=== PATIENT | female | born 1980 | race Caucasian/White ===

== ENCOUNTER 2016-08-30 14:42 | Emergency (ER) | payer SELFPAY ==
[2016-08-30 15:37] VITALS: BP 148/88
--- NOTE | 2016-08-30 15:54 | UC ---
Throat Pain/Nasal Olman HPI - HPI Summary HPI Summary: Patient has had a week of sinus congestion and now has developed a sore throat. - History of Current Complaint Chief Complaint: UCRespiratory Stated Complaint: SORE THROAT Time Seen by Provider: 08/30/16 15:40 Hx Obtained From: Patient Hx Last Menstrual Period: 08/07/16 ?: No Onset/Duration: Sudden Onset, Lasting Days Severity: Moderate Pain Intensity: 6 Pain Scale Used: 0-10 Numeric Cough: None Associated Signs & Symptoms: Positive: Dysphagia, Sinus Discomfort, Nasal Discharge - Epiglottits Risk Factors Epiglottis Risk Factors: Negative - Allergies/Home Medications Allergies/Adverse Reactions: Allergies Allergy/AdvReac Type Severity Reaction Status Date / Time No Known Allergies Allergy Verified 10/03/14 23:42 Home Medications: Home Medications buPROPion TAB* [Wellbutrin TAB*] 100 mg PO BID 08/30/16 [History Confirmed 08/30] PMH/Surg Hx/FS Hx/Imm Hx Previously Healthy: Yes Endocrine History Of: Denies: Diabetes, Thyroid Disease Cardiovascular History Of: Denies: Cardiac Disorders, Hypertension Respiratory History Of: Denies: COPD, Asthma GI/ History Of: Denies: Ulcer - Surgical History Surgical History: None - Family History Known Family History: Negative: Hypertension - Social History Alcohol Use: Weekly Substance Use Type: Marijuana Substance Use Comment - Amount & Last Used: daily Smoking Status (MU): Current Some Day Smoker Type: Cigarettes Review of Systems Constitutional: Negative Skin: Negative Eyes: Negative ENT: Sore Throat, Ear Ache, Nasal Discharge Respiratory: Negative Cardiovascular: Negative Gastrointestinal: Negative Genitourinary: Negative Motor: Negative Neurovascular: Negative Musculoskeletal: Negative Neurological: Headache Psychological: Anxious All Other Systems Reviewed And Are Negative: Yes Physical Exam Triage Information Reviewed: Yes Appearance: Well-Appearing, Well-Nourished, Pain Distress Vital Signs: Initial Vital Signs Temp 98.3 F 08/30/16 15:34 Pulse 58 08/30/16 15:34 Resp 18 08/30/16 15:34 BP 148/88 08/30/16 15:34 Pulse Ox 99 08/30/16 15:34 Vital Signs Reviewed: Yes Eye Exam: Normal Eyes: Positive: Conjunctiva Clear ENT: Positive: Pharyngeal erythema, Nasal congestion - bilateral maxillary congestion and pressure, TM bulging Dental Exam: Normal Neck exam: Normal Neck: Positive: Supple, Nontender, No Lymphadenopathy Respiratory Exam: Normal Respiratory: Positive: Chest non-tender, Lungs clear, Normal breath sounds Cardiovascular Exam: Normal Cardiovascular: Positive: RRR, No Murmur, Pulses Normal Abdominal Exam: Normal Abdomen Description: Positive: Nontender, No Organomegaly, Soft Bowel Sounds: Positive: Present Musculoskeletal Exam: Normal Musculoskeletal: Positive: Strength Intact, ROM Intact, No Edema Neurological Exam: Normal Neurological: Positive: Alert, Muscle Tone Normal Psychological Exam: Normal Skin Exam: Normal Throat Pain/Nasal Course/Dx - Course Course Of Treatment: hx obtained exam performed, rapid strep test performed, educated on manual sinus drainage, medication prescribed. - Differential Dx/Diagnosis Differential Diagnosis/HQI/PQRI: Influenza, Laryngitis, Otitis Media, Pharyngitis, Sinusitis, Tonsillitis Provider Diagnoses: rhinosinusitis. pharyngitis Discharge - Discharge Plan Condition: Stable Disposition: HOME Prescriptions: predniSONE TAB* [Deltasone TAB*] 40 mg PO DAILY #10 tab Patient Education Materials: Rhinosinusitis (ED) Referrals: No Primary Care Phys,NOPCP [Primary Care Provider] - Additional Instructions: take the prednisone as prescribed. Increase your fluid intake and continue with the manual drainage we discussed. follow up with any worsening symptoms
== END 2016-08-30 16:38 | disposition home or self-care (01) ==
LOC: UCEAST 14:42
DX: J32.9 Chronic sinusitis, unspecified (principal); J02.9 Acute pharyngitis, unspecified; F12.90 Cannabis use, unspecified, uncomplicated; Z72.0 Tobacco use
CPT/HCPCS: 87651; 99212; G0463

== ENCOUNTER 2018-04-27 07:13 | Emergency (ER) | payer SELFPAY ==
[2018-04-27] MEDS ORDERED: Ondansetron INJ* 2 MG/ML VIAL IV ONE (08:07)
[2018-04-27] MEDS ORDERED: Ketorolac INJ* 30 MG/ML 1 ML VIAL IV ONE (08:07)
[2018-04-27] MEDS ORDERED: NS 0.9% 1000 ML* 1,000 ML IV ONE (08:07)
--- OUTSIDE RECORDS SUMMARY | 2018-04-27 08:07 | XMS REPORT | Continuity of Care Document ---
:1980 External Reference #:[id number] Author Name Luis Mireles MD Address [address] [place] [address] Care Team Providers Name Role Phone Imtiaz Hartmann D.D.S. Care Team Information Camp Nurse Unavailable Payers Description No Information Available Advance Directives Description No Information Available Problems Description No Information Family History Description No Information Available Social History Type Date Description Comments Sex Unknown Occupation Unknown Tobacco Use Start: Unknown Current Cigarette Smoker 1-5 x 20 years Cigarettes Daily Tobacco Use Start: Unknown Never Smoked Cigars Tobacco Use Start: Unknown Never Smoked A Pipe Smokeless Tobacco Never Used Smokeless Tobacco ETOH Use Currently occasionally consumes alcohol Tobacco Use Start: Unknown Patient is a current smoker, smokes every day Smoking Status Reviewed: 04/19/18 Patient is a current smoker, smokes every day Allergies, Adverse Reactions, Alerts Description No Known Drug Allergies Medications Medication Date Status Form Strength Qnty SIG Indications Ordering Provider Womens Multi 00/00/ Active Capsules take as Unknown 0000 directed Hair Skin And 00/ Active Tablets as directed Unknown Nails Formula 0000 Super B / Active Tablets as directed Unknown Complex/Vitam 0000 in C Iron / Active Tablets 28mg 1 by mouth as Unknown 0000 needed Zinc / Active Capsules 30mg Prn Unknown 0000 Vitamin C 00/ Active Capsules 500-400mg- as directed Unknown 0000 Unit Tramadol HCL / Active Tablets 50mg when Unknown 0000 menstrating Zyrtec / Active Capsules 10mg 1 by mouth Unknown Allergy 0000 every night at bedtime Immunizations Description No Information Available Vital Signs Date Vital Result Comment 04/19/2018 2:46pm Weight 128.00 lb Weight 58.061 kg Height 62.5 inches 5'2.50" Height in cm's 158.8 cm BMI (Body Mass Index) 23.0 kg/m2 Results Description No Information Available Procedures Description No Information Available Encounters Type Date Location Provider Dx Diagnosis Office Visit 04/19/2018 Espinoza,Marlon Wheeler J30.9 Allergic rhinitis, 2:15p 07/24/07 MD Aline unspecified 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
[2018-04-27 08:28] LABS: ABS Basophils 0.1 10^3/ul (0-0.2); ABS Eosinophils 0.2 10^3/ul (0-0.6); ABS Lymphocytes 1.4 10^3/ul (1.0-4.8); ABS Monocytes 0.5 10^3/ul (0-0.8); ABS Nucleated RBC 0 10^3/ul; Eosinophil % 4.2 % (0-6); Hematocrit 43 % (35-47); Hemoglobin 14.6 g/dl (12.0-16.0); Lymphocyte % 27.1 % (25-47); Mean Corpuscular HGB Conc 34 g/dl (31-36); Mean Corpuscular Hemoglobin 32 pg (27-31); Mean Corpuscular Volume 95 fL (80-97); Mean Platelet Volume 7.7 um3 (7.4-10.4); Nucleated Red Blood Cells % 0.2; Platelet Count 242 10^3/ul (150-450); Red Blood Count 4.53 10^6/ul (4.00-5.40); Red Cell Distribution Width 13 % (10.5-15); White Blood Count 5.1 10^3/ul (3.5-10.8)
--- NOTE | 2018-04-27 08:35 | ED ---
Abdominal Pain/Female - HPI Summary HPI Summary: This pt is a 38 y/o female presenting to [facility] c/o sudden onset of mid abdominal cramping this morning. Pt reports that she was getting ready for work at around 06:30 and took a sip of seltzer water when she suddenly developed abd cramping. Pt has drank this seltzer water for 1 year now. She states that it caused her to freeze and drop to her knees with diaphoresis all over. Pt denies syncope or LOC. Currently pt rates her pain 7 out of 10 in severity. She describes "it feels like something is wrapped around my rib cage and is tightening" and is difficult to breathe secondary to pain. Denies fever, chills , nausea, vomiting, chest pain, urinary symptoms. LMP: . Denies any PMHx. NKDA. - History of Current Complaint Chief Complaint: EDAbdPain Stated Complaint: ABD PAIN Time Seen by Provider: 04/27/18 07:47 Hx Obtained From: Patient Hx Last Menstrual Period: 08/07/16 Onset/Duration: Sudden Onset, Still Present Timing: Constant Severity Currently: Moderate Pain Intensity: 7 Pain Scale Used: 0-10 Numeric Location: Other - mid abdomen Radiates: No Character: Cramping Aggravating Factor(s): Nothing Alleviating Factor(s): Nothing Associated Signs and Symptoms: Negative: Fever, Chest Pain, Urinary Symptoms, Nausea, Vomiting Allergies/Adverse Reactions: Allergies Allergy/AdvReac Type Severity Reaction Status Date / Time polyethylene glycol 3350 Allergy Rash Verified 04/27/18 07:41 [From Miralax] Home Medications: Home Medications Tramadol HCl 50 mg PO Q6HR PRN 04/27/18 [History Confirmed 04/27/18] PMH/Surg Hx/FS Hx/Imm Hx Endocrine/Hematology History: Denies: Hx Diabetes, Hx Thyroid Disease Cardiovascular History: Denies: Hx Hypertension Respiratory History: Denies: Hx Asthma, Hx Chronic Obstructive Pulmonary Disease (COPD) GI History: Denies: Hx Ulcer - Surgical History Surgery Procedure, Year, and Place: none - Immunization History Immunizations Up to Date: Yes Infectious Disease History: No Infectious Disease History: Denies: Hx Hepatitis, Hx Human Immunodeficiency Virus (HIV), Traveled Outside the [place] in Last 30 Days - Family History Known Family History: Positive: Cardiac Disease - grandmother, Diabetes Negative: Hypertension - Social History Alcohol Use: Weekly Alcohol Amount: 1-2 x per week Substance Use Type: Reports: Marijuana Substance Use Comment - Amount & Last Used: daily Smoking Status (MU): Light Every Day Tobacco Smoker Type: Cigarettes Review of Systems Positive: Skin Diaphoresis. Negative: Fever, Chills Eyes: Negative Negative: Chest Pain Positive: Abdominal Pain. Negative: Vomiting, Nausea Positive: no symptoms reported, see HPI Negative: Syncope All Other Systems Reviewed And Are Negative: Yes Physical Exam - Summary Physical Exam Summary: VITAL SIGNS: Reviewed. GENERAL: Patient is a well-developed and nourished female who is lying comfortable in the stretcher. Patient is not in any acute respiratory distress. HEAD AND FACE: Normocephalic and atraumatic. EYES: PERRLA, EOMI x 2, No injected conjunctiva. EARS: Hearing grossly intact. Ear canals and tympanic membranes are WNL. MOUTH: Oropharynx within normal limits. NECK: Supple, trachea is midline, no adenopathy, no JVD. CHEST: Symmetric, no tenderness at palpation LUNGS: Clear to auscultation bilaterally. No wheezing or crackles. CVS: RRR, S1 and S2 present, no murmurs or gallops appreciated. ABDOMEN: Soft, tenderness in the upper abdomen. No signs of distention. Positive bowel sounds. No rebound no guarding, and no masses palpated. No abdominal bruit or pulsations. EXTREMITIES: FROM in all major joints, no edema, no cyanosis or clubbing. NEURO: Alert and oriented x 3. No acute neurological deficits. Speech is normal. SKIN: Dry and warm Triage Information Reviewed: Yes Vital Signs On Initial Exam: Initial Vitals Temp Pulse Resp BP Pulse Ox 97.4 F 58 17 143/76 98 04/27/18 07:37 04/27/18 07:37 04/27/18 07:37 04/27/18 07:37 04/27/18 07:37 Vital Signs Reviewed: Yes Diagnostics - Vital Signs Vital Signs Temp Pulse Resp BP Pulse Ox 04/27/18 07:37 97.4 F 58 17 143/76 98 - Laboratory Lab Results: Lab Results 04/27/18 Range/Units 08:11 WBC 5.1 (3.5-10.8) 10^3/ul RBC 4.53 (4.00-5.40) 10^6/ul Hgb 14.6 (12.0-16.0) g/dl Hct 43 (35-47) % MCV 95 (80-97) fL MCH 32 H (27-31) pg MCHC 34 (31-36) g/dl RDW 13 (10.5-15) % Plt Count 242 (150-450) 10^3/ul MPV 7.7 (7.4-10.4) um3 Neut % (Auto) 58.1 (38-83) % Lymph % (Auto) 27.1 (25-47) % [place] % (Auto) 9.3 H (0-7) % Eos % (Auto) 4.2 (0-6) % Baso % (Auto) 1.3 (0-2) % Absolute Neuts (auto) 3.0 (1.5-7.7) 10^3/ul Absolute Lymphs (auto) 1.4 (1.0-4.8) 10^3/ul Absolute Monos (auto) 0.5 (0-0.8) 10^3/ul Absolute Eos (auto) 0.2 (0-0.6) 10^3/ul Absolute Basos (auto) 0.1 (0-0.2) 10^3/ul Absolute Nucleated RBC 0 10^3/ul Nucleated RBC % 0.2 Result Diagrams: 04/27/18 08:11 04/27/18 08:11 Lab Statement: Any lab studies that have been ordered have been reviewed, and results considered in the medical decision making process. - Radiology Abdomen XR Xray Interpretation: No Acute Changes - IMPRESSION: Nonobstructive bowel gas pattern. Dr. Sommer has reviewed this report. Radiology Interpretation Completed By: Radiologist - EKG 08:25 Cardiac Rate: Bradycardia - at 47 bpm EKG Rhythm: Sinus Bradycardia EKG Interpretation: No ST elevations. Abdominal Pain Fem Course/Dx - Course Course Of Treatment: This pt is a 38 y/o female presenting to [facility] c/o sudden onset of mid abdominal cramping this morning. Pt reports that she was getting ready for work at around 06:30 and took a sip of seltzer water when she suddenly developed abd cramping. Pt has drank this seltzer water for 1 year now. She states that it caused her to freeze and drop to her knees with diaphoresis all over. Pt denies syncope or LOC. Currently pt rates her pain 7 out of 10 in severity. She describes "it feels like something is wrapped around my rib cage and is tightening" and is difficult to breathe secondary to pain. Denies fever, chills, nausea, vomiting, chest pain, urinary symptoms. LMP: Mar. 15. Denies any PMHx. NKDA. Blood work without any significant abnormality, beta hCG is negative, troponin is 0.00. Abdominal x-ray impression : Non-obstructive bowel gas pattern. In the ED course the patient was given IV fluids, Zofran and morphine for the pain. At this point the patient is completely asymptomatic. I observed the patient for couple hours and the symptoms did not return. Multiple abdominal exams during the ER stay the abdomen is soft, nontender with positive bowel sounds. Since the patient is completely asymptomatic, all the blood tests and x-ray are within normal limits I believe that the patient can be safely discharged home with follow-up from primary care physician. I also discussed the benefits and risk of an abdominal/ pelvis CT and at this time we chose not to get the CT of the abdomen and pelvis until the patients pain returns or worsens. The patient understands and agrees. At this point the patient is hemodynamically stable, alert and oriented 3. Patient will be discharged home with follow up from her primary care physician. - Diagnoses Differential Diagnosis: Positive: Constipation, Gall Bladder Disease, Urinary Tract Infection Provider Diagnoses: Upper abdominal pain Discharge - Sign-Out/Discharge Documenting (check all that apply): Patient Departure - Discharge home - Discharge Plan Condition: Stable Disposition: HOME Patient Education Materials: Abdominal Pain (ED) Referrals: [facility] [Outside] Additional Instructions: FOLLOW UP WITH YOUR PRIMARY CARE PROVIDER WITHIN ONE WEEK FOR HIGH BLOOD PRESSURE NOTED TODAY. RETURN TO THE ED FOR ANY NEW OR WORSENING SYMPTOMS. - Attestation Statements Document Initiated by Scribe: Yes Documenting Scribe: Sneha Lay Provider For Whom Parth is Documenting (Include Credential): Juan Antonio Sommer MD Scribe Attestation: Sneha Hoffmann, scribed for Juan Antonio Sommer MD on 04/27/18 at 1326.
[2018-04-27 08:46] LABS: EGFR Non-African American 86.9 (>60)
--- NOTE | 2018-04-27 09:23 | RAD ---
HISTORY: Abdominal pain COMPARISONS: None VIEWS: Frontal supine and upright views of the abdomen. FINDINGS: BOWEL: There is a nonobstructive bowel gas pattern. There is large amount of stool within the ascending and proximal transverse colon. The distal transverse and descending and rectosigmoid colon are relatively stable for a period CALCULI: There are no abnormal calculi. BONES AND SOFT TISSUES: There are no osseous abnormalities. OTHER FINDINGS: The lung bases are clear. There is no subphrenic gas. An IUD is noted. IMPRESSION: NONOBSTRUCTIVE BOWEL GAS PATTERN.
[2018-04-27 09:43] LABS: Urine Appearance Clear; Urine Blood Negative (Negative); Urine Color Yellow; Urine Ketones Negative (Negative); Urine Protein Negative (Negative); Urine Specific Gravity 1.013 (1.010-1.030); Urine Urobilinogen Negative (Negative)
[2018-04-27 10:23] VITALS: BP 118/66
== END 2018-04-27 10:21 | disposition home or self-care (01) ==
LOC: ED 07:13
DX: R10.10 Upper abdominal pain, unspecified (principal); F17.210 Nicotine dependence, cigarettes, uncomplicated
CPT/HCPCS: 36415; 74019; 80053; 81003; 82150; 83605; 83690; 84484; 84702; 85025; 86140; 93005; 96361; 96374; 96375; 99282; J1885; J2405

== ENCOUNTER 2019-07-27 12:49 | Emergency (ER) | payer BC ==
--- NOTE | 2019-07-27 13:07 | ED ---
HPI Chest Pain - HPI Summary HPI Summary: Pt. is a 39 y.o female who presents to the ER for left sided chest pain that started yesterday. Notes pain is sharp in nature and worse with movement and inspiration. Past hx of cigarette use. Denies family hx of CAD, clotting d/o. Pt. denies any injury but does not "rough sex" last night. Pt. otherwise denies recent illness, fever, abd. pain, cough. Sxs are moderate in severity. - History of Current Complaint Chief Complaint: EDChestPainROMI Time Seen by Provider: 07/27/19 13:05 Hx Obtained From: Patient Hx Last Menstrual Period: 08/07/16 Pain Intensity: 8 - Allergy/Home Medications Allergies/Adverse Reactions: Allergies Allergy/AdvReac Type Severity Reaction Status Date / Time polyethylene glycol 3350 Allergy Rash Verified 07/27/19 12:52 [From Miralax] PMH/Surg Hx/FS Hx/Imm Hx Previously Healthy: Yes Endocrine/Hematology History: Denies: Hx Diabetes, Hx Thyroid Disease Cardiovascular History: Denies: Hx Hypertension Respiratory History: Denies: Hx Asthma, Hx Chronic Obstructive Pulmonary Disease (COPD) GI History: Denies: Hx Ulcer - Surgical History Surgery Procedure, Year, and Place: none Infectious Disease History: No Infectious Disease History: Denies: Hx Hepatitis, Hx Human Immunodeficiency Virus (HIV), Traveled Outside the [place] in Last 30 Days - Family History Known Family History: Positive: Cardiac Disease - grandmother, Diabetes Negative: Hypertension - Social History Occupation: Employed Full-time Lives: With Family Alcohol Use: Weekly Alcohol Amount: 1-2 x per week Substance Use Type: Reports: Marijuana Substance Use Comment - Amount & Last Used: daily Smoking Status (MU): Current Some Day Smoker Type: Cigarettes Review of Systems Constitutional: Negative ENT: Negative Positive: Chest Pain Respiratory: Negative Negative: Shortness Of Breath, Cough Genitourinary: Negative Positive: Other - Left chest wall pain Skin: Negative Neurological: Negative All Other Systems Reviewed And Are Negative: Yes Physical Exam Triage Information Reviewed: Yes Vital Signs On Initial Exam: Initial Vitals Temp Pulse Resp BP Pulse Ox 97.1 F 90 19 130/80 100 07/27/19 12:49 07/27/19 12:49 07/27/19 12:49 07/27/19 12:49 07/27/19 12:49 Vital Signs Reviewed: Yes Appearance: Positive: Well-Appearing - Pt. sitting up in bed in NAD. SO present. Skin: Positive: Warm, Dry Head/Face: Positive: Normal Head/Face Inspection Eyes: Positive: Normal, EOMI, LUCILLE Neck: Positive: Supple Respiratory/Lung Sounds: Positive: Clear to Auscultation, Breath Sounds Present. Negative: Rales, Rhonchi, Wheezes Cardiovascular: Positive: Normal, RRR Abdomen Description: Positive: Nontender, Soft Musculoskeletal: Positive: Normal, Strength/ROM Intact, Other - Reproducible left sided chest wall pain. Neurological: Positive: Normal, CN Intact II-III Psychiatric: Positive: Affect/Mood Appropriate Procedures - Sedation Patient Received Moderate/Deep Sedation with Procedure: No Diagnostics - Vital Signs Vital Signs Temp Pulse Resp BP Pulse Ox 07/27/19 12:49 97.1 F 90 19 130/80 100 - Laboratory Result Diagrams: 07/27/19 13:35 07/27/19 13:35 Lab Statement: Any lab studies that have been ordered have been reviewed, and results considered in the medical decision making process. Chest Pain Course/Dx - Course Course Of Treatment: Pt. with reproducible left sided chest pain since yesterday. VS stable HEART score is 1, low risk. ECG done at 1256 shows a sinus rhythm of 70bpm, normal axis, no ST elevation or depression. Labs are unremarkable. CXR negative per radiology. Suspect muscular in nature. Results discussed. Pt. notes she is seeing a new PCP in a few week. NSAIDS for pain as directed. Will return to er if sxs change or worsen. Pt. understands and agrees with plan. - Chest Pain Differential Diagnosis/HQI/PQRI: Acute WI, Chest Wall, Pulmonary Embolism - Diagnoses Provider Diagnoses: Atypical chest pain, Chest wall pain Discharge ED - Sign-Out/Discharge Documenting (check all that apply): Patient Departure - Discharge Plan Condition: Improved Disposition: HOME Patient Education Materials: Chest Pain (ED) Referrals: [facility] [Outside] Additional Instructions: Call [facility] on Monday for a close follow up appointment Recommend Ibuprofen 600-800mg every 8 hours for pain as directed Return to ER if symptoms change or worsen - Billing Disposition and Condition Condition: IMPROVED Disposition: Home - Attestation Statements Provider Attestation: I was available for consult. This patient was seen by the MARGIE. The patient was not presented to, seen by, or examined by me. Otilio Sosa MD
[2019-07-27] MEDS ORDERED: Naproxen TAB* 250 MG PO ONE (13:15)
[2019-07-27 13:42] LABS: ABS Basophils 0.1 10^3/ul (0-0.2); ABS Eosinophils 0.3 10^3/ul (0-0.6); ABS Lymphocytes 1.8 10^3/ul (1.0-4.8); ABS Monocytes 0.4 10^3/ul (0-0.8); ABS Neutrophils 3.2 10^3/ul (1.5-7.7); Hematocrit 38 % (35-47); Hemoglobin 13.2 g/dL (12.0-16.0); Lymphocyte % 32.2 %; Mean Corpuscular HGB Conc 35 g/dL (31-36); Mean Corpuscular Hemoglobin 33 pg (27-31); Mean Corpuscular Volume 94 fL (80-97); Mean Platelet Volume 7.3 fL (7.4-10.4); Nucleated Red Blood Cells % 0.1; Platelet Count 249 10^3/uL (150-450); Red Blood Count 4.03 10^6 /uL (3.70-4.87); Red Cell Distribution Width 13 % (10-15); White Blood Count 5.7 10^3/uL (3.5-10.8)
[2019-07-27 14:00] LABS: ALT 12 U/L (7-52); AST 14 U/L (13-39); Albumin 4.2 g/dL (3.2-5.2); Albumin/Globulin Ratio 1.8 (1-3); Alkaline Phosphatase 56 U/L (34-104); Anion Gap 9 mmol/L (2-11); BUN/Creatinine Ratio 16.5 (8-20); Blood Urea Nitrogen 15 mg/dL (6-24); CO2 Carbon Dioxide 25 mmol/L (22-32); Calcium 9.1 mg/dL (8.6-10.3); Chloride 100 mmol/L (101-111); EGFR African American 82.4 (>60); EGFR Non-African American 68.1 (>60); Globulin 2.4 g/dL (2-4); Glucose 82 mg/dL (70-100); Potassium 3.7 mmol/L (3.5-5.0); Sodium 134 mmol/L (135-145); Total Protein 6.6 g/dL (6.4-8.9)
[2019-07-27 14:16] LABS: HCG Pregnancy < 0.60 mIU/mL
[2019-07-27 15:28] VITALS: BP 117/75
== END 2019-07-27 15:33 | disposition home or self-care (01) ==
LOC: ED 12:49
DX: R07.89 Other chest pain (principal); F17.210 Nicotine dependence, cigarettes, uncomplicated; Z88.8 Allergy status to other drugs, medicaments and biological substances
CPT/HCPCS: 36415; 71045; 80053; 83690; 84484; 84702; 85025; 85379; 93005; 99283; A9270-GY